=== PATIENT | female | born 1960 | race Caucasian/White ===

== ENCOUNTER 2021-07-23 14:20 | Outpatient (CLI) | payer OTHER, SELFPAY ==
--- NOTE | ~2021-07-23 | US_ITS ---
EXAMINATION: US venous doppler [facility] DATE: 07/23/2021 14:48 INDICATION: Left lower limb swelling. TECHNIQUE: Grayscale ultrasound images without and with compression and Doppler ultrasound images of the left lower extremity veins were obtained. COMPARISON: None. FINDINGS: The visualized portions of left common femoral vein, profunda (deep) femoral vein, femoral vein, popl iteal vein, peroneal veins, posterior tibial veins, and greater saphenous vein outflow are patent. IMPRESSION: 1. No deep venous thrombosis. Reviewed, dictated and finalized at location A. RAMS MANAGER
== END 2021-07-23 14:21 | disposition home or self-care (01) ==
LOC: CHSIMG 14:26
PROVIDERS: PCP Family Medicine; Visit Provider Family Medicine
DX: R60.0 Localized edema (principal)
CPT/HCPCS: 93971

== ENCOUNTER 2021-07-30 07:18 | Outpatient (CLI) | payer OTHER, SELFPAY ==
--- NOTE | ~2021-07-30 | US_ITS ---
EXAMINATION: US pelvic complete w TV EXAM DATE: 07/30/2021 08:13 INDICATION: Abdominal Pain . TECHNIQUE: Pelvic transabdominal and transvaginal sonogram was performed. There are multiple graysca le and Doppler images available for interpretation. Comparison is made to prior examination from [facility]. FINDINGS: The vaginal cuff is unremarkable. No free pelvic fluid. Right adnexa: The ovary measures 1.9 x 2.5 x 1.9 cm and is morphologically normal. Ovarian vascular f low confirmed. Left adnexa: The ovary is not identified. There is no adnexal mass. IMPRESSION: 1. Unremarkable right ovary. Reviewed, dictated and finalized at location A. LITATION ASSISTANT
--- NOTE | ~2021-07-30 | US_ITS ---
EXAMINATION: US abdomen complete EXAM DATE: 07/30/2021 08:13 INDICATION: Abdominal Pain . TECHNIQUE: Multiple grayscale and Doppler images of the complete abdomen were obtained (by a technolo gist who performed the scan) and subsequently reviewed. There is no prior study for comparison. FINDINGS: The abdominal aorta is normal in caliber. Visualized portion IVC is patent. There is anechoic reg ion in the retroperitoneum measuring 2 cm, with differential diagnosis including duodenal diverticulu m, and pancreatic body cystic lesion with considerations including pseudocyst, intraductal papillary mucinous neoplasm (IPMN), mucinous cystic neoplasm (MCN), and the less common serous cystadenoma and neuroendocrine tumor. Pancreatic duct was measured at 6 mm, dilated. Possible pancreatic calcificati ons, chronic pancreatitis. There is echogenic liver parenchyma, hepatic steatosis. There are no focal liver lesions identified. There is no evidence of intrahepatic biliary duct dilation. Portal venous flow was seen in the he patopedal, normal direction and has normal Doppler waveform. Common bile duct measures 7 mm, which is mildly dilated. The gallbladder wall is normal in thickness, with expected amount of distention. No sonographic evidence of pericholecystic fluid. There is no cholelithiases. Technologist performing exam reports patient did not demonstrate sonographic Van's sign. Please note that this sign is less reliable in patients who have received pain medication. Right kidney: There is normal contour and echogenicity. It measures 10.5 x 4.6 x 5.8 centimeters. T here is a 1 cm cyst centrally located. There is no hydronephrosis. Left kidney: There is normal contour and echogenicity. It measures 11.2 x 4.8 x 4.9 centimeters. Th ere is a 1 cm cyst. There is no hydronephrosis. Expected location of spleen was scanned, spleen is not identified adjacent to the left kidney. IMPRESSION: 1. Cystic retroperitoneal region, considerations include pseudocyst, cystic pancreatic neoplasm, duo denal diverticulum. 2. Mildly dilated pancreatic and common bile ducts. Possible chronic pancreatitis. 3. Hepatic steatosis. 4. Recommend MRI/MRCP without and with contrast for further evaluation. Reviewed, dictated and finalized at location A. UARD LOOM WEAVER IMPRESSION: 1. Cystic retroperitoneal region, considerations include pseudocyst, cystic pa ncreatic neoplasm, duodenal diverticulum. 2. Mildly dilated pancreatic and common bile ducts. Possible chronic pancreati tis. 3. Hepatic steatosis. 4. Recommend MRI/MRCP without and with contrast for further evaluation.
== END 2021-07-30 07:19 | disposition home or self-care (01) ==
LOC: CHSIMG 07:19
PROVIDERS: PCP Family Medicine; Visit Provider Family Medicine
DX: R10.9 Unspecified abdominal pain (principal)
CPT/HCPCS: 76700; 76830; 76856

== ENCOUNTER 2021-08-06 06:56 | Outpatient (CLI) | payer OTHER, SELFPAY ==
--- NOTE | ~2021-08-06 | MR_ITS ---
EXAMINATION: MR MRCP wo/w con/w 3D wo ind DATE: 08/06/2021 09:12 INDICATION: Pancreatitis. Retroperitoneal mass. TECHNIQUE: Magnetic resonance imaging (MRI) of the abdomen was performed without and with 12 mL Multi [place] intravenous contrast. Sequences included coronal T2-weighted FSE, axial T1-weighted LAVA, axial dual-echo T1-weighted SPGR, sagittal T2-weighted FSE, axial LAVA-flex, axial T2-weighted FSE, and ax ial DWI. Thick-slab T2-weighted FSE images were obtained for magnetic resonance cholangiopancreatogra phy (MRCP). Maximum intensity projection 3-D reconstructions of the volumetric data were created by pedro roth technologist. Postcontrast sequences included a time course of axial T1-weighted LAVA. COMPARISON: Abdomen ultrasound 07/30/2021 FINDINGS: ABDOMEN MRI: There is diffuse hepatic steatosis. The gallbladder is contracted. The spleen and adrena l glands are normal. There is cortical thinning of the kidneys. The pancreatic duct is dilated to 9 m m. There is a 2.3 cm cystic lesion in the body of the pancreas. There is focal stenosis of the spleni c vein near the portosplenic confluence. There are no dilated loops of bowel. There are no pathologic ally enlarged lymph nodes. There is no free intraperitoneal fluid. ABDOMEN MRCP: The common duct is normal and measures 5 mm. No choledocholithiasis. IMPRESSION: 1. Dilated main pancreatic duct and 2.3 cm cystic lesion in the body of the pancreas. The differentia l diagnosis includes chronic pancreatitis with pseudocyst, intraductal papillary mucinous neoplasm (I PMN), and occult neoplasm in the pancreatic head or ampulla with secondary duct dilatation. Compariso n with any prior outside CT and/or ERCP is recommended. 2. Diffuse hepatic steatosis. Reviewed, dictated and finalized at location A. STERED NURSE FLOAT POOL IMPRESSION: 1. Dilated main pancreatic duct and 2.3 cm cystic lesion in the body of the maldonado creas. The differential diagnosis includes chronic pancreatitis with pseudocyst , intraductal papillary mucinous neoplasm (IPMN), and occult neoplasm in the pa ncreatic head or ampulla with secondary duct dilatation. Comparison with any pr ior outside CT and/or ERCP is recommended. 2. Diffuse hepatic steatosis.
== END 2021-08-06 06:57 | disposition home or self-care (01) ==
LOC: CHSIMG 06:58
PROVIDERS: PCP Family Medicine; Visit Provider Physician Assistant
DX: K86.1 Other chronic pancreatitis (principal)
CPT/HCPCS: 74183; 76376; A9577

== ENCOUNTER 2021-09-24 08:48 | Outpatient (CLI) | payer OTHER, SELFPAY ==
--- NOTE | 2021-09-24 08:55 | ECHO_ITS ---
Patient Info Name: Yocasta Aguayo Age: 61 years : 1960 Gender: Female Ht: 62 in Wt: 100 lbs BSA: 1.40 m2 HR: 64 bpm BP: 125 / 78 mmHg Technical Quality: Good Exam Date: 09/24/2021 9:43 AM Exam Location: [facility] Patient Status: Outpatient Admit Date: 09/24/2021 Staff Ordering Physician: Jennifer, Alex TRAN Senior Pharmacy Technician: Flora Deleon Attending Provider: Jennifer, Alex TRAN Exam Type: CA echo doppler color flow Study Info Indications R60.9 - Edema, unspecified Complete two-dimensional, color flow and Doppler transthoracic echocardiogram is performed. Strain analysis performed. Summary 1. Complete two-dimensional, color flow and Doppler transthoracic echocardiogram is performed. 2. Left ventricular chamber dimension is normal. 3. Ventricular septum is sigmoid shaped. No LVOT obstruction. 4. Left ventricular systolic function is normal, estimated at 60-65%. 5. The left ventricular diastolic function is grade I diastolic dysfunction. 6. E/e' 10 is mildly elevated. 7. Global longitudinal strain is normal at -22.3%. 8. There is trace mitral valve regurgitation. 9. There is trace tricuspid valve regurgitation. 10. No pulmonary hypertension, estimated pulmonary arterial systolic pressure is 31 mmHg. Left Ventricle Ventricular septum is sigmoid shaped. No LVOT obstruction. E/e' 10 is mildly elevated. Global longitudinal strain is normal at -22.3%. Left ventricular chamber dimension is normal. Left ventricular systolic function is normal, estimated at 60-65%. The left ventricular diastolic function is grade I diastolic dysfunction. Right Ventricle Right ventricular chamber dimension is normal. Right ventricular systolic function is normal. Left Atria Left atrial chamber dimension is normal. Right Atria Right atrial chamber dimension is normal. Aortic Valve The aortic valve is trileaflet. There is no aortic valve stenosis. There is no aortic valve regurgitation. Pulmonic Valve There is no pulmonic regurgitation. Mitral Valve There is no mitral valve stenosis. There is trace mitral valve regurgitation. Tricuspid Valve There is trace tricuspid valve regurgitation. No pulmonary hypertension, estimated pulmonary arterial systolic pressure is 31 mmHg. Pericardium/Pleural There is no pericardial effusion. Inferior Vena Cava Normal inferior vena cava with >50% collapse upon inspiration consistent with normal right atrial pressure, 5 mmHg. Aorta The aortic root size at the sinus of Valsalva is normal. Left Ventricular Outflow Tract Name Value Normal LVOT 2D LVOT Diameter 1.9 cm LVOT Doppler LVOT Peak Velocity 96 cm/s LVOT Peak Gradient 4 mmHg LVOT Mean Gradient 2 mmHg LVOT VTI 20 cm LVOT VTI/AV VTI Ratio 0.7 LVOT Stroke Volume 54 ml Mitral Valve Name Value Normal
== END 2021-09-24 08:49 | disposition home or self-care (01) ==
LOC: CHSIMG 08:49
PROVIDERS: PCP Family Medicine; Visit Provider Family Medicine
DX: R60.9 Edema, unspecified (principal)
CPT/HCPCS: 93306

== ENCOUNTER 2021-10-11 07:14 | Outpatient (CLI) | payer OTHER, SELFPAY ==
--- NOTE | ~2021-10-11 | CT_ITS ---
EXAMINATION: CT abdomen pelvis w con INDICATION: Lower abdominal pain TECHNIQUE: Computed tomographic images of the abdomen and pelvis were obtained after the administrati on of 100 cc of Omnipaque 350 intravenous contrast. The dose-length product (DLP) was 166.92 mGy-cm. Automated exposure control and iterative reconstruction technique were employed. COMPARISON: MRCP, 08/06/2021 FINDINGS: The lung bases are clear. The heart size is normal. There is a small sliding hiatal hernia. The liver, spleen, and adrenal glands are normal. There are multiple calcifications in the pancreas including a 1.8 cm ductal calcification in the head of pancreas. This results in moderate enlargement of the pancreatic duct in the head of the pancreas. There is mild fat stranding surrounding the panc reas. There is a 3.5 cm cystic lesion in the body of the pancreas which has increased in size. There is atrophy of the tail of the pancreas. There is questionable mild wall thickening of the gallbladder . There is a 5 mm nonobstructing stone of the right kidney. There is calcified atherosclerosis of the aorta and many of the other arteries. No pathologically enlarged abdominal or pelvic lymph nodes are identified. There is no free intraperitoneal gas or evidence of bowel obstruction. There is a small volume of ascites in the pelvis. Colonic diverticulosis is present without evidence of diverticulitis . Diffuse anasarca is noted. There are compression fractures of the L1 and L2 vertebral bodies. IMPRESSION: 1. Chronic pancreatitis with possible superimposed acute pancreatitis. 2. Enlarging cystic lesion in the body of the pancreas which could reflect sterile walled off necrosi s. 3. Small volume ascites. 4. Right nephrolithiasis. Reviewed, dictated and finalized at location B. IMPRESSION: 1. Chronic pancreatitis with possible superimposed acute pancreatitis. 2. Enlarging cystic lesion in the body of the pancreas which could reflect ster ile walled off necrosis. 3. Small volume ascites. 4. Right nephrolithiasis.
== END 2021-10-11 07:15 | disposition home or self-care (01) ==
LOC: CHSIMG 07:16
PROVIDERS: PCP Family Medicine; Visit Provider Family Medicine
DX: R10.9 Unspecified abdominal pain (principal)
CPT/HCPCS: 74177; Q9967